=== PATIENT | female | born 1935 | race Caucasian/White ===

== ENCOUNTER 2018-03-01 08:00 | Day surgery (SDC) | payer OTHER ==
[~2018-03-01 08:00] MED LIST: ALPRAZOLAM2 MG PO; AMBIEN10 MG PO; AVAPRO150 MG PO; CIPRO750 MG PO; Colace 100MG PO; PERCOCET 5/3251 TAB PO
[2018-03-02] MEDS ORDERED: DOCUSATE SODIU100 MG PO (07:36)
[2018-03-02] MEDS ORDERED: GABAPENTIN800 MG PO (07:36)
[2018-03-02] MEDS ORDERED: DOLOGESIC 500-1 EACH PO (07:36)
[2018-03-02] MEDS ORDERED: CLONAZEPAM1 MG PO (07:37)
[2018-03-02] MEDS ORDERED: AMOX-CLAV 875-1 EACH PO (07:37)
== END 2018-03-02 08:00 | disposition home or self-care (01) ==
LOC: CIR.AMB 08:00 → O/R 10:36 → PED 10:36 → SURH 13:00 → CIR.AMB 03-02 08:00 → PED 03-02 14:48
DX: M48.061 Spinal stenosis, lumbar region without neurogenic claudication (principal); M47.12 Other spondylosis with myelopathy, cervical region; I10 Essential (primary) hypertension

== ENCOUNTER 2019-08-01 11:08 | Inpatient (IN) | payer OTHER ==
[~2019-08-01] VITALS: Ht 152.4 cm; Wt 72.6 kg
[~2019-08-01 11:08] MED LIST changes: +AMOX-CLAV 875-1 EACH PO; +CLONAZEPAM1 MG PO; +DOCUSATE SODIU100 MG PO; +DOLOGESIC 500-1 EACH PO; +GABAPENTIN800 MG PO
[2019-08-01] MEDS ORDERED: NIFEDIPINE ER30 M1 (11:51)
[2019-08-01] MEDS ORDERED: GLIMEPIRIDE1 MG (11:52)
[2019-08-01] MEDS ORDERED: OMEPRAZOLE20 MG (11:52)
[2019-08-01] MEDS ORDERED: GABAPENTIN100 MG (11:52)
[2019-08-10] MEDS ORDERED: ACETAMINOPHEN-1 EAC2 PO (12:23)
[2019-08-10] MEDS ORDERED: CLONAZEPAM0.5 MG PO (12:24)
[2019-08-10] MEDS ORDERED: COLACE100 MG PO (12:24)
== END 2019-08-11 13:00 | disposition home or self-care (01) | DRG 473 ==
LOC: O/R 08-04 12:45 → SURH 08-10 15:10
PROVIDERS: ADMIT Orthopaedic Surgery Orthopaedic Surgery of the Spine
PROC: 0RT30ZZ Resection of Cervical Vertebral Disc, Open Approach (ICD-10-PCS; 2019-08-10)
PROC: 0RG10A0 Fusion of Cervical Vertebral Joint with Interbody Fusion Device, Anterior Approach, Anterior Column, Open Approach (ICD-10-PCS; principal; 2019-08-10 07:00)
DX: M50.01 Cervical disc disorder with myelopathy, high cervical region (principal); I10 Essential (primary) hypertension; M48.02 Spinal stenosis, cervical region